=== PATIENT | female | born 1995 | race Asian ===

== ENCOUNTER 2018-05-16 14:47 | Emergency (ER) | payer BC ==
[~2018-05-16] VITALS: Ht 157.5 cm; Wt 73.6 kg
[2018-05-16] MEDS ORDERED: ADV250 IH (15:05)
[2018-05-16] MEDS ORDERED: ALBU8.5H8 IH (15:05)
[2018-05-16] MEDS ORDERED: MethylPREDNISolone SOD SUCC 125 MG/2 ML VIAL IVP ONE (15:15)
[2018-05-16 16:49] VITALS: BP 118/60
== END 2018-05-16 17:09 | disposition home or self-care (01) ==
LOC: EMS 14:49
DX: T78.40XA Allergy, unspecified, initial encounter (principal); J45.909 Unspecified asthma, uncomplicated; Z91.010 Allergy to peanuts; Z91.018 Allergy to other foods; Z79.899 Other long term (current) drug therapy; F12.90 Cannabis use, unspecified, uncomplicated; X58.XXXA Exposure to other specified factors, initial encounter
CPT/HCPCS: 96374; 99285; J2930